=== PATIENT | male | born 1985 | race Caucasian/White ===

== ENCOUNTER 2016-11-10 00:18 | Emergency (ER) | payer BC ==
[~2016-11-10] VITALS: Ht 188 cm; Wt 142.0 kg
[2016-11-10 00:41] LABS: HEMATOCRIT 44.9 % (38.0-50.0); MCH 29.9 PG (29.0-34.0); MCHC 34.1 G/DL (30.0-36.0); MCV 87.7 FL (86-99); MEAN PLAT.VOLUME 10.1 uM^3 (9.0-12.4); PLATELET COUNT 271 K/uL (156-360); RBC DIS.WIDTH-CV 13.2 % (11.8-14.6); RBC DIS.WIDTH-SD 41.9 % (39-53); RED BLOOD COUNT 5.12 M/uL (4.00-5.50); WHITE BLOOD COUNT 8.4 K/uL (4.1-10.2)
[2016-11-10 00:50] LABS: CHLORIDE 106 mEq/L (99-109); POTASSIUM 4.3 mEq/L (3.7-5.4); SODIUM 142 mEq/L (136-147)
[2016-11-10 00:51] LABS: GLUCOSE 103 mg/dL (70-99)
[2016-11-10 00:53] LABS: ANION GAP 11 MEQ/L (2-14)
[2016-11-10 00:55] LABS: GFR ESTIMATE (CALCULATED) > 59 mL/min/
[2016-11-10 00:56] LABS: UREA NITROGEN (BUN) 14 mg/dL (9-23)
[2016-11-10 01:03] LABS: TROP-I INTERPRETATION NEGATIVE; TROPONIN-I < 0.01 ng/mL (0.0-0.30)
[2016-11-10 01:26] LABS: TOTAL BILIRUBIN 0.3 mg/dL (0.0-1.0)
[2016-11-10 01:27] LABS: ALKALINE PHOSPHATASE 54 IU/L (3-129)
[2016-11-10 01:30] LABS: DIRECT BILIRUBIN 0.1 mg/dL (0.0-0.3)
[2016-11-10 01:31] LABS: LIPASE 22 U/L (1.0-51.0)
[2016-11-10 02:32] LABS: TROP-I INTERPRETATION NEGATIVE; TROPONIN-I < 0.01 ng/mL (0.0-0.30)
[2016-11-10 03:12] VITALS: BP 118/69
== END 2016-11-10 03:12 | disposition home or self-care (01) ==
LOC: EME 00:18
PROVIDERS: Emergency Medicine
DX: R07.9 Chest pain, unspecified (principal); Z82.49 Family history of ischemic heart disease and other diseases of the circulatory system
CPT/HCPCS: 71020; 80048; 80076; 83690; 84484; 85027; 93005; 99281; 99284

== ENCOUNTER 2016-11-21 22:33 | Inpatient (IN) | payer BC, OTHER ==
[~2016-11-21] VITALS: Ht 185.4 cm; Wt 140.9 kg
[2016-11-21 23:32] LABS: HEMATOCRIT 44.5 % (38.0-50.0); MCH 30.1 PG (29.0-34.0); MCHC 33.7 G/DL (30.0-36.0); MCV 89.2 FL (86-99); RBC DIS.WIDTH-CV 13.1 % (11.8-14.6); RBC DIS.WIDTH-SD 41.9 % (39-53); RED BLOOD COUNT 4.99 M/uL (4.00-5.50); WHITE BLOOD COUNT 7.2 K/uL (4.1-10.2)
[2016-11-21 23:50] LABS: CHLORIDE 105 mEq/L (99-109); POTASSIUM 4.2 mEq/L (3.7-5.4); SODIUM 141 mEq/L (136-147)
[2016-11-21 23:52] LABS: GLUCOSE 106 mg/dL (70-99)
[2016-11-21 23:54] LABS: ANION GAP 8 MEQ/L (2-14); TOTAL BILIRUBIN 0.3 mg/dL (0.0-1.0)
[2016-11-21 23:55] LABS: TROP-I INTERPRETATION NEGATIVE; TROPONIN-I < 0.01 ng/mL (0.0-0.30)
[2016-11-21 23:56] LABS: ALKALINE PHOSPHATASE 55 IU/L (3-129); GFR ESTIMATE (CALCULATED) > 59 mL/min/
[2016-11-21 23:57] LABS: UREA NITROGEN (BUN) 15 mg/dL (9-23)
[2016-11-21 23:59] LABS: LIPASE 20 U/L (1.0-51.0)
[2016-11-22 00:14] LABS: ADD MIUA? NO; BILIRUBIN NEGATIVE; BLOOD NEGATIVE; COLOR YELLOW ((YELLOW)); GLUCOSE (STRIP) NEGATIVE; KETONES NEGATIVE; LEUKOCYTES NEGATIVE; NITRITE NEGATIVE; PROTEIN (STRIP) TRACE; SPECIFIC GRAVITY 1.032 (1.000-1.030); UCUL ADDED? NO; UROBILINOGEN 0.2 MG/DL (0.2-1.0)
[2016-11-22 00:37] LABS: MEAN PLAT.VOLUME 11.3 uM^3 (9.0-12.4); PLATELET COUNT 113 K/uL (156-360)
[2016-11-22 02:40] LABS: TROP-I INTERPRETATION NEGATIVE; TROPONIN-I 0.01 ng/mL (0.0-0.30)
[2016-11-22 03:26] VITALS: BP 145/93
[2016-11-22 06:26] VITALS: BP 134/98
[2016-11-22 07:23] VITALS: BP 129/72
[2016-11-22 08:19] VITALS: BP 134/98
[2016-11-22 08:28] LABS: HEMATOCRIT 44.9 % (38.0-50.0); MCH 30.3 PG (29.0-34.0); MCHC 33.6 G/DL (30.0-36.0); MEAN PLAT.VOLUME 10.9 uM^3 (9.0-12.4); RBC DIS.WIDTH-CV 13.3 % (11.8-14.6); RBC DIS.WIDTH-SD 43.7 % (39-53); RED BLOOD COUNT 4.99 M/uL (4.00-5.50)
[2016-11-22 08:30] LABS: PLATELET COUNT 238 K/uL (156-360); WHITE BLOOD COUNT 9.9 K/uL (4.1-10.2)
[2016-11-22 08:32] LABS: ALKALINE PHOSPHATASE 59 IU/L (3-129); ANION GAP 9 MEQ/L (2-14); CHLORIDE 103 MEQ/L (99-109); GFR ESTIMATE (CALCULATED) > 59 mL/min/; GLUCOSE 135 mg/dL (70-99); POTASSIUM 4.4 MEQ/L (3.7-5.4); SAMPLE HEMOLYSIS CHECK 0; SAMPLE ICTERIC CHECK 0; SAMPLE LIPEMIA CHECK 0; SODIUM 139 MEQ/L (136-147); TOTAL BILIRUBIN 0.5 MG/DL (0.0-1.0); UREA NITROGEN (BUN) 11 mg/dL (9-23)
[2016-11-22] MEDS ORDERED: CENTRUM ULTRA1 EACH PO (12:05)
[2016-11-22 13:38] LABS: AMYLASE 207 IU/L (1-118); LIPASE 862 U/L (1.0-51.0)
[2016-11-22 15:32] VITALS: BP 147/80
[2016-11-22 20:46] VITALS: BP 144/89
[2016-11-23 03:40] VITALS: BP 130/80
[2016-11-23 07:32] LABS: HEMATOCRIT 42.7 % (38.0-50.0); MCH 29.9 PG (29.0-34.0); MCV 90.7 FL (86-99); MEAN PLAT.VOLUME 10.5 uM^3 (9.0-12.4); PLATELET COUNT 207 K/uL (156-360); RBC DIS.WIDTH-CV 13.5 % (11.8-14.6); RBC DIS.WIDTH-SD 44.7 % (39-53); RED BLOOD COUNT 4.71 M/uL (4.00-5.50); WHITE BLOOD COUNT 9.5 K/uL (4.1-10.2)
[2016-11-23 07:51] LABS: ALKALINE PHOSPHATASE 52 IU/L (3-129); ANION GAP 6 MEQ/L (2-14); CHLORIDE 106 MEQ/L (99-109); GFR ESTIMATE (CALCULATED) > 59 mL/min/; GLUCOSE 115 mg/dL (70-99); LIPASE 33 U/L (1.0-51.0); POTASSIUM 4.1 MEQ/L (3.7-5.4); SAMPLE HEMOLYSIS CHECK 0; SAMPLE ICTERIC CHECK 0; SAMPLE LIPEMIA CHECK 0; SODIUM 139 MEQ/L (136-147); TOTAL BILIRUBIN 0.5 MG/DL (0.0-1.0); UREA NITROGEN (BUN) 6 mg/dL (9-23)
[2016-11-23 07:52] LABS: AMYLASE 41 IU/L (1-118)
[2016-11-23 07:58] LABS: Estimated Average Glucose 108 mg/dL (70-123); HEMOGLOBIN A1c (GLYCOHEMOGLOB) 5.4 % HGB (Below 5.7)
[2016-11-23 08:00] VITALS: BP 119/66
[2016-11-23 11:35] VITALS: BP 139/75
[2016-11-23 15:55] VITALS: BP 116/67
[2016-11-23 20:02] VITALS: BP 125/72
[2016-11-23 22:44] VITALS: BP 141/65
[2016-11-24 03:43] VITALS: BP 123/59
[2016-11-24 07:00] VITALS: BP 138/80
[2016-11-24 07:47] LABS: HEMATOCRIT 44.9 % (38.0-50.0); MCH 30.3 PG (29.0-34.0); MCHC 33.4 G/DL (30.0-36.0); MCV 90.7 FL (86-99); MEAN PLAT.VOLUME 10.8 uM^3 (9.0-12.4); PLATELET COUNT 209 K/uL (156-360); RBC DIS.WIDTH-CV 13.5 % (11.8-14.6); RBC DIS.WIDTH-SD 44.3 % (39-53); RED BLOOD COUNT 4.95 M/uL (4.00-5.50); WHITE BLOOD COUNT 8.3 K/uL (4.1-10.2)
[2016-11-24 08:17] LABS: ALKALINE PHOSPHATASE 70 IU/L (3-129); AMYLASE 37 IU/L (1-118); ANION GAP 9 MEQ/L (2-14); CHLORIDE 103 MEQ/L (99-109); GFR ESTIMATE (CALCULATED) > 59 mL/min/; GLUCOSE 99 mg/dL (70-99); LIPASE 36 U/L (1.0-51.0); POTASSIUM 4.2 MEQ/L (3.7-5.4); SAMPLE HEMOLYSIS CHECK 0; SAMPLE ICTERIC CHECK 0; SAMPLE LIPEMIA CHECK 0; SODIUM 139 MEQ/L (136-147); TOTAL BILIRUBIN 0.8 MG/DL (0.0-1.0); UREA NITROGEN (BUN) 7 mg/dL (9-23)
[2016-11-24 11:00] VITALS: BP 121/69
[2016-11-24] MEDS ORDERED: OXYCODONE HCL5 MG PO (11:34)
[2016-11-24 14:03] VITALS: BP 123/72
== END 2016-11-24 13:05 | disposition home or self-care (01) | DRG 417 ==
LOC: EME 22:33 → 5EAST 11-22 02:00 → EDOF 11-22 02:00 → 5EAST 11-22 03:19
PROVIDERS: Emergency Medicine; Surgery
PROC: 0FT44ZZ Resection of Gallbladder, Percutaneous Endoscopic Approach (ICD-10-PCS; principal; 2016-11-22)
DX: K80.47 Calculus of bile duct with acute and chronic cholecystitis with obstruction (principal); K85.10 Biliary acute pancreatitis without necrosis or infection; K56.7 Ileus, unspecified; E66.01 Morbid (severe) obesity due to excess calories; G47.00 Insomnia, unspecified; K21.9 Gastro-esophageal reflux disease without esophagitis; Z68.41 Body mass index [BMI] 40.0-44.9, adult; Z23 Encounter for immunization
CPT/HCPCS: 71275; 74177; 80053; 81003; 82150; 83036; 83690; 84484; 85027; 88304; 99281; 99285; J0330; J1170; J1650; J2250; J2270; J2405; J2710; J3010; J7030

== ENCOUNTER → 2016-12-20 | Outpatient (CLI) | payer BC, OTHER ==
[~2016-12-20] MED LIST: CENTRUM ULTRA1 EACH PO; OXYCODONE HCL5 MG PO
== END | disposition home or self-care (01) ==
LOC: AMB 13:30
DX: Z09 Encounter for follow-up examination after completed treatment for conditions other than malignant neoplasm (principal); K80.10 Calculus of gallbladder with chronic cholecystitis without obstruction; E66.01 Morbid (severe) obesity due to excess calories; Z68.41 Body mass index [BMI] 40.0-44.9, adult; K85.10 Biliary acute pancreatitis without necrosis or infection; D72.829 Elevated white blood cell count, unspecified; R07.89 Other chest pain; G47.00 Insomnia, unspecified
CPT/HCPCS: 99212